=== PATIENT | male | born 1980 | race Hispanic/Latino ===

== ENCOUNTER 2022-05-13 09:49 | Emergency (ER) | payer OTHER, SELFPAY ==
[2022-05-13] MEDS ORDERED: Dexamethasone 10 MG/ML VIAL ONE (11:50)
== END 2022-05-13 11:58 | disposition home or self-care (01) ==
LOC: CSHERS 09:49
DX: M79.641 Pain in right hand (principal); L29.9 Pruritus, unspecified; T50.A95A Adverse effect of other bacterial vaccines, initial encounter; F17.210 Nicotine dependence, cigarettes, uncomplicated
CPT/HCPCS: J1100